=== PATIENT | female | born 1970 | race Hispanic/Latino ===

== ENCOUNTER 2023-01-26 15:06 | Inpatient (IN) | payer BC ==
[2023-01-26] VITALS (8 sets, daily range): BP systolic 131; BP diastolic 74; PULSE 80–105; RESP 18–26; O2SAT 95–99
[~2023-01-26] VITALS: Ht 180.3 cm; Wt 115.2 kg
[~2023-01-26 15:06] MED LIST: AMOX-426 PO; BENZ-226 PO; PANT40TA PO; PRED20TA3 PO; ROPI3TAB21 PO; SEMA0.258 SQ; TIZA4CAP8 PO
[2023-01-26 15:51] LABS: BASOPHILS % (AUTO) 0.2 % (0.0-5.0); EOSINOPHILS % (AUTO) 0.7 % (0.0-8.0); HEMATOCRIT 38.9 % (36-48); LYMPHOCYTES % (AUTO) 2.5 % (21.0-51.0); MEAN CORPUSCULAR HEMOGLOBIN 19.8 pg (27.0-33.0); MEAN CORPUSCULAR VOLUME 70.7 fL (79-99); PLATELET COUNT (AUTO) 105 K/uL (130-400); RED CELL DISTRIBUTION WIDTH 21.7 % (11.0-15.5); WHITE BLOOD COUNT (AUTO) 11.8 K/uL (4.8-10.8)
[2023-01-26] MEDS ORDERED: FAMOTIDINE 20MG VIAL IV ONE (16:00)
[2023-01-26] MEDS ORDERED: METOCLOPRAMIDE 10 MG/2 ML VIAL IVP ONE (16:00)
[2023-01-26] MEDS ORDERED: KETOROLAC 30MG VIAL (30MG/ML) IVP ONE (16:00)
[2023-01-26] MEDS ORDERED: ALBUTEROL 0.083% 2.5 MG/3 ML INH IH ONE ×2 (16:00→18:00)
[2023-01-26 16:43] LABS: CREATININE 0.8 mg/dL (0.5-1.5); POTASSIUM 4.4 mmol/L (3.5-5.1)
[2023-01-26 16:50] LABS: ALBUMIN 2.8 g/dL (3.5-5.0); TOTAL PROTEIN, SERUM 5.8 g/dL (6.0-8.3)
[2023-01-26] MEDS ORDERED: CEFTRIAXONE 2GM VIAL IVPB ONE (17:30)
[2023-01-26] MEDS ORDERED: ONDANSETRON 4MG INJ IV PRN (18:30)
[2023-01-26] MEDS ORDERED: ZOLPIDEM TARTRATE 5 MG TAB PO PRN (18:30)
[2023-01-26] MEDS ORDERED: DiphenhydrAMINE HCL 50 MG/ML VIAL IV PRN (18:30)
[2023-01-26] MEDS ORDERED: CEFTRIAXONE 1G VIAL IV SCH (18:30)
[2023-01-26] MEDS ORDERED: ACETAMINOPHEN 325 MG TAB PO PRN ×2 (18:30)
[2023-01-26] MEDS ORDERED: HYDROCODONE/ACETAMINOPHEN 5/325 MG TAB PO PRN (18:30)
[2023-01-26] MEDS ORDERED: KETOROLAC 10 MG TABLET PO PRN (18:30)
[2023-01-26] MEDS ORDERED: MAG/ALUM/SIMETH 30 ML UDCUP PO PRN (18:30)
[2023-01-26] MEDS ORDERED: MORPHINE 2 MG SYG IVP PRN (18:30)
[2023-01-26] MEDS ORDERED: NITROGLYCERIN 0.4 MG SL TAB SL PRN (18:30)
[2023-01-26] MEDS: SOLU-MEDROL 125MG VIAL IV SCH (19:12)
[2023-01-26] MEDS: NITROGLYCERIN 1GM OINT 1 INCH/1GM TD SCH (19:13)
[2023-01-26] MEDS ORDERED: SODIUM BICARB 8.4% 50ML SYRINGE IVP ONE (20:09)
[2023-01-26] MEDS ORDERED: EPINEPHRINE 1MG/10ML(1:10,000) 0.1 MG/ML SYG IVP ONE (20:09)
[2023-01-26] MEDS: FAMOTIDINE 20MG VIAL IV SCH ×2 (21:00→23:37)
[2023-01-26] MEDS: IPRATROPIUM 0.5 MG/2.5 ML INH IH SCH (23:16)
[2023-01-26] MEDS: ALBUTEROL 0.083% 2.5 MG/3 ML INH IH SCH (23:16)
[2023-01-26] MEDS: HEPARIN 5,000 UNIT VIAL SQ SCH (23:38)
[2023-01-26] MEDS: GUAIFENESIN-DM 200/20 MG 10 ML PO PRN (23:40)
[2023-01-27] VITALS (17 sets, daily range): BP systolic 138–166; BP diastolic 67–96; PULSE 61–107; RESP 18–26; O2SAT 95–97
[2023-01-27] MEDS: SOLU-MEDROL 125MG VIAL IV SCH ×3 (03:01→18:14)
[2023-01-27] MEDS: NITROGLYCERIN 1GM OINT 1 INCH/1GM TD SCH ×3 (03:02→18:14)
[2023-01-27] MEDS: IPRATROPIUM 0.5 MG/2.5 ML INH IH SCH ×6 (03:25→23:13)
[2023-01-27] MEDS: ALBUTEROL 0.083% 2.5 MG/3 ML INH IH SCH ×6 (03:25→23:13)
[2023-01-27 04:34] LABS: HEMATOCRIT 35.2 % (36-48); LYMPHOCYTES % (AUTO) 3.5 % (21.0-51.0); MEAN CORPUSCULAR HEMOGLOBIN 20.1 pg (27.0-33.0); MEAN CORPUSCULAR HGB CONC 27.8 g/dL (32.0-36.0); MEAN CORPUSCULAR VOLUME 72.1 fL (79-99); MONOCYTES % (AUTO) 3.5 % (3.0-13.0); NEUTROPHILS % (AUTO) 92.2 % (40.0-77.0); PLATELET COUNT (AUTO) 91 K/uL (130-400); RED BLOOD CELL COUNT(AUTO) 4.88 MIL/uL (4.00-5.50); RED CELL DISTRIBUTION WIDTH 21.2 % (11.0-15.5); WHITE BLOOD COUNT (AUTO) 6.3 K/uL (4.8-10.8)
[2023-01-27 04:44] LABS: INR 1.01 (0.85-1.15); PROTHROMBIN TIME 11.7 SEC (9.6-11.6)
[2023-01-27] MEDS: GUAIFENESIN-DM 200/20 MG 10 ML PO PRN ×2 (04:50→09:51)
[2023-01-27 04:59] LABS: HEMOGLOBIN A1C 5.9 % (4.0-6.0)
[2023-01-27 05:01] LABS: ALBUMIN 2.7 g/dL (3.5-5.0); CREATININE 0.8 mg/dL (0.5-1.5); MAGNESIUM 2.1 mg/dL (1.80-2.40); POTASSIUM 4.3 mmol/L (3.5-5.1); THYROID STIMULATING HORMONE 1.41 uIU/mL (0.36-3.74)
[2023-01-27] MEDS: FAMOTIDINE 20MG VIAL IV SCH ×4 (09:00→21:18)
[2023-01-27] MEDS: TIZANIDINE HCL 2 MG TABLET PO SCH ×5 (09:00→21:17)
[2023-01-27] MEDS: HEPARIN 5,000 UNIT VIAL SQ SCH (09:26)
[2023-01-27] MEDS ORDERED: VANCOMYCIN PROTOCOL PER PHARMACY IV SCH (11:00)
[2023-01-27] MEDS ORDERED: VANCOMYCIN 2GM/500 ML BAG 500 ML IV SCH (11:30)
[2023-01-27] MEDS: LEVOFLOXACIN 500 MG/D5W 100 ML 100 ML IV SCH (11:47)
[2023-01-27] MEDS: CEFEPIME HCL 2 GM VIAL IVPB SCH ×2 (11:47→18:15)
[2023-01-27] MEDS ORDERED: VANCOMYCIN 2GM/500 ML BAG 500 ML IV ONE (12:00)
[2023-01-27] MEDS: BENZONATATE 100 MG CAPSULE PO PRN ×2 (13:56→22:28)
[2023-01-27] MEDS: INSULIN HUMULIN R 100 UNIT/ML 3ML SQ SCH ×2 (16:30→21:25)
[2023-01-27 17:28] LABS: ABG HCO3 28.1 mmol/L (21.0-28.0); ABG OXYGEN SATURATION 94.5 % (95.0-99.0); ABG PCO2 40 mmHg (32-45)
[2023-01-27] MEDS: GUAIFENESIN-CODEINE 5 ML SYRUP PO PRN (18:07)
[2023-01-27] MEDS: ROPINIROLE HCL 1 MG TABLET PO SCH (21:17)
[2023-01-28] VITALS (25 sets, daily range): BP systolic 100–182; BP diastolic 57–95; PULSE 59–110; RESP 20–32; O2SAT 92–97
[2023-01-28] MEDS: VANCOMYCIN 1.5 GM/250 ML BAG 250 ML IV SCH ×2 (01:15→13:46)
[2023-01-28] MEDS: GUAIFENESIN-CODEINE 5 ML SYRUP PO PRN ×2 (02:19→09:11)
[2023-01-28] MEDS: SOLU-MEDROL 125MG VIAL IV SCH ×2 (02:20→08:47)
[2023-01-28] MEDS: NITROGLYCERIN 1GM OINT 1 INCH/1GM TD SCH ×3 (02:23→17:04)
[2023-01-28] MEDS: IPRATROPIUM 0.5 MG/2.5 ML INH IH SCH ×6 (02:54→21:10)
[2023-01-28] MEDS: ALBUTEROL 0.083% 2.5 MG/3 ML INH IH SCH ×6 (02:54→21:10)
[2023-01-28] MEDS: CEFEPIME HCL 2 GM VIAL IVPB SCH ×3 (03:54→18:42)
[2023-01-28 04:26] LABS: HEMATOCRIT 32.7 % (36-48); MEAN CORPUSCULAR HEMOGLOBIN 20.1 pg (27.0-33.0); MEAN CORPUSCULAR HGB CONC 27.5 g/dL (32.0-36.0); PLATELET COUNT (AUTO) 97 K/uL (130-400); RED BLOOD CELL COUNT(AUTO) 4.48 MIL/uL (4.00-5.50); RED CELL DISTRIBUTION WIDTH 21.1 % (11.0-15.5); WHITE BLOOD COUNT (AUTO) 7.1 K/uL (4.8-10.8)
[2023-01-28 04:56] LABS: CREATININE 0.7 mg/dL (0.5-1.5)
[2023-01-28] MEDS: INSULIN HUMULIN R 100 UNIT/ML 3ML SQ SCH ×4 (05:43→20:03)
[2023-01-28] MEDS: FAMOTIDINE 20MG VIAL IV SCH ×4 (08:46→19:59)
[2023-01-28] MEDS: TIZANIDINE HCL 2 MG TABLET PO SCH ×4 (08:48→19:58)
[2023-01-28] MEDS: BENZONATATE 100 MG CAPSULE PO PRN ×2 (09:11→16:50)
[2023-01-28] MEDS: LEVOFLOXACIN 500 MG/D5W 100 ML 100 ML IV SCH (12:13)
[2023-01-28 13:01] LABS: BODY FLUID RBC 472 /cu. mm.; BODY FLUID WBC 175 /cu. mm.
[2023-01-28] MEDS: GUAIFENESIN-CODEINE 5 ML SYRUP PO SCH ×3 (13:46→19:58)
[2023-01-28 14:24] LABS: APPEARANCE BODY FLUID SLIGHTLY CLOUDY (CLEAR); COLOR,BODY FLUID YELLOW (LT YELLOW); SPECIMENTYPE,BODY FLUID PLEURAL; TOTAL VOLUME,BODY FLUID 1500 mL
[2023-01-28 14:34] LABS: BF LYMPHOCYTE 53 %; BF MONOCYTE 3 %
[2023-01-28] MEDS: HEPARIN 5,000 UNIT VIAL SQ SCH (16:51)
[2023-01-28] MEDS: SOLU-MEDROL 40MG VIAL IVP SCH (18:43)
[2023-01-28] MEDS: ROPINIROLE HCL 1 MG TABLET PO SCH (19:58)
[2023-01-29] VITALS (13 sets, daily range): BP systolic 120–158; BP diastolic 50–75; PULSE 54–92; RESP 0–24; O2SAT 94–100
[2023-01-29] MEDS: BENZONATATE 100 MG CAPSULE PO PRN ×2 (00:28→20:51)
[2023-01-29] MEDS: VANCOMYCIN 1.5 GM/250 ML BAG 250 ML IV SCH ×2 (00:28→15:04)
[2023-01-29] MEDS: GUAIFENESIN-CODEINE 5 ML SYRUP PO SCH ×6 (00:28→20:43)
[2023-01-29] MEDS: IPRATROPIUM 0.5 MG/2.5 ML INH IH SCH ×6 (02:16→23:19)
[2023-01-29] MEDS: ALBUTEROL 0.083% 2.5 MG/3 ML INH IH SCH ×6 (02:16→23:19)
[2023-01-29] MEDS: NITROGLYCERIN 1GM OINT 1 INCH/1GM TD SCH ×3 (02:35→18:48)
[2023-01-29] MEDS: SOLU-MEDROL 40MG VIAL IVP SCH ×3 (02:35→18:48)
[2023-01-29] MEDS: CEFEPIME HCL 2 GM VIAL IVPB SCH ×3 (02:35→18:48)
[2023-01-29] MEDS: HEPARIN 5,000 UNIT VIAL SQ SCH ×2 (04:08→17:23)
[2023-01-29 05:47] LABS: HEMATOCRIT 33.3 % (36-48); MEAN CORPUSCULAR HEMOGLOBIN 20.4 pg (27.0-33.0); MEAN CORPUSCULAR HGB CONC 27.3 g/dL (32.0-36.0); MEAN CORPUSCULAR VOLUME 74.5 fL (79-99); PLATELET COUNT (AUTO) 106 K/uL (130-400); RED BLOOD CELL COUNT(AUTO) 4.47 MIL/uL (4.00-5.50); RED CELL DISTRIBUTION WIDTH 21.6 % (11.0-15.5); WHITE BLOOD COUNT (AUTO) 9.2 K/uL (4.8-10.8)
[2023-01-29 05:57] LABS: CREATININE 0.7 mg/dL (0.5-1.5); POTASSIUM 4.1 mmol/L (3.5-5.1)
[2023-01-29] MEDS: INSULIN HUMULIN R 100 UNIT/ML 3ML SQ SCH ×4 (05:57→20:17)
[2023-01-29] MEDS: FAMOTIDINE 20MG VIAL IV SCH ×4 (09:00→20:43)
[2023-01-29] MEDS: TIZANIDINE HCL 2 MG TABLET PO SCH ×4 (09:00→20:43)
[2023-01-29] MEDS: LEVOFLOXACIN 500 MG/D5W 100 ML 100 ML IV SCH (10:58)
[2023-01-29] MEDS: ROPINIROLE HCL 1 MG TABLET PO SCH (20:43)
[2023-01-30] VITALS (18 sets, daily range): BP systolic 125–165; BP diastolic 65–103; PULSE 68–102; RESP 18–22; O2SAT 95–99
[2023-01-30] MEDS: VANCOMYCIN 1.5 GM/250 ML BAG 250 ML IV SCH (02:11)
[2023-01-30] MEDS: SOLU-MEDROL 40MG VIAL IVP SCH ×3 (02:11→18:43)
[2023-01-30] MEDS: GUAIFENESIN-CODEINE 5 ML SYRUP PO SCH ×6 (02:11→20:34)
[2023-01-30] MEDS: NITROGLYCERIN 1GM OINT 1 INCH/1GM TD SCH ×3 (02:12→18:44)
[2023-01-30] MEDS: ALBUTEROL 0.083% 2.5 MG/3 ML INH IH SCH ×6 (02:46→22:50)
[2023-01-30] MEDS: IPRATROPIUM 0.5 MG/2.5 ML INH IH SCH ×6 (02:46→22:50)
[2023-01-30] MEDS: CEFEPIME HCL 2 GM VIAL IVPB SCH ×3 (04:22→18:44)
[2023-01-30] MEDS: HEPARIN 5,000 UNIT VIAL SQ SCH ×2 (05:38→17:22)
[2023-01-30 06:45] LABS: BASOPHILS % (AUTO) 0.2 % (0.0-5.0); HEMATOCRIT 36.3 % (36-48); LYMPHOCYTES % (AUTO) 1.8 % (21.0-51.0); MEAN CORPUSCULAR HEMOGLOBIN 20.1 pg (27.0-33.0); MEAN CORPUSCULAR HGB CONC 27.5 g/dL (32.0-36.0); MEAN CORPUSCULAR VOLUME 72.9 fL (79-99); NEUTROPHILS % (AUTO) 92.9 % (40.0-77.0); PLATELET COUNT (AUTO) 128 K/uL (130-400); RED BLOOD CELL COUNT(AUTO) 4.98 MIL/uL (4.00-5.50); RED CELL DISTRIBUTION WIDTH 21.6 % (11.0-15.5); WHITE BLOOD COUNT (AUTO) 11.4 K/uL (4.8-10.8)
[2023-01-30] MEDS: INSULIN HUMULIN R 100 UNIT/ML 3ML SQ SCH ×4 (06:49→20:32)
[2023-01-30 07:06] LABS: ALBUMIN 2.6 g/dL (3.5-5.0); CREATININE 0.7 mg/dL (0.5-1.5); POTASSIUM 4.1 mmol/L (3.5-5.1); TOTAL PROTEIN, SERUM 5.8 g/dL (6.0-8.3)
[2023-01-30 07:12] LABS: B-TYPE NATRIURETIC PEPTIDE 95 pg/mL (0-100)
[2023-01-30] MEDS: FAMOTIDINE 20MG VIAL IV SCH ×3 (09:00→20:34)
[2023-01-30] MEDS: TIZANIDINE HCL 2 MG TABLET PO SCH ×4 (09:00→20:34)
[2023-01-30] MEDS: LEVOFLOXACIN 500 MG/D5W 100 ML 100 ML IV SCH (11:02)
[2023-01-30] MEDS ORDERED: HYDRALAZINE 20MG/ML VIAL IM PRN (12:00)
[2023-01-30] MEDS: LISINOPRIL 20 MG TABLET PO SCH (12:57)
[2023-01-30] MEDS: VANCOMYCIN 1.75 GM/250 ML BAG 250 ML IV SCH (15:49)
[2023-01-30] MEDS: ROPINIROLE HCL 1 MG TABLET PO SCH (20:34)
[2023-01-30] MEDS: BENZONATATE 100 MG CAPSULE PO PRN (20:40)
[2023-01-31] VITALS (14 sets, daily range): BP systolic 147–177; BP diastolic 54–97; PULSE 72–113; RESP 18–28; O2SAT 92–99
[2023-01-31] MEDS: ALBUTEROL 0.083% 2.5 MG/3 ML INH IH SCH ×6 (01:50→22:17)
[2023-01-31] MEDS: IPRATROPIUM 0.5 MG/2.5 ML INH IH SCH ×6 (01:50→22:17)
[2023-01-31] MEDS: GUAIFENESIN-CODEINE 5 ML SYRUP PO SCH ×6 (02:09→20:25)
[2023-01-31] MEDS: NITROGLYCERIN 1GM OINT 1 INCH/1GM TD SCH ×3 (02:10→18:27)
[2023-01-31] MEDS: SOLU-MEDROL 40MG VIAL IVP SCH ×3 (02:10→18:28)
[2023-01-31] MEDS: VANCOMYCIN 1.75 GM/250 ML BAG 250 ML IV SCH ×2 (02:11→13:29)
[2023-01-31] MEDS: CEFEPIME HCL 2 GM VIAL IVPB SCH ×3 (04:05→18:27)
[2023-01-31 05:09] LABS: BASOPHILS % (AUTO) 0.1 % (0.0-5.0); HEMATOCRIT 34.3 % (36-48); LYMPHOCYTES % (AUTO) 1.8 % (21.0-51.0); MEAN CORPUSCULAR HEMOGLOBIN 20.6 pg (27.0-33.0); MEAN CORPUSCULAR HGB CONC 28.3 g/dL (32.0-36.0); MEAN CORPUSCULAR VOLUME 72.7 fL (79-99); MONOCYTES % (AUTO) 4.8 % (3.0-13.0); NEUTROPHILS % (AUTO) 92.1 % (40.0-77.0); PLATELET COUNT (AUTO) 115 K/uL (130-400); RED BLOOD CELL COUNT(AUTO) 4.72 MIL/uL (4.00-5.50); RED CELL DISTRIBUTION WIDTH 21.4 % (11.0-15.5); WHITE BLOOD COUNT (AUTO) 11.2 K/uL (4.8-10.8)
[2023-01-31 05:22] LABS: B-TYPE NATRIURETIC PEPTIDE 41 pg/mL (0-100)
[2023-01-31 05:27] LABS: CREATININE 0.6 mg/dL (0.5-1.5); POTASSIUM 3.9 mmol/L (3.5-5.1)
[2023-01-31] MEDS: HEPARIN 5,000 UNIT VIAL SQ SCH ×2 (05:39→17:30)
[2023-01-31] MEDS: BENZONATATE 100 MG CAPSULE PO PRN ×2 (05:40→20:25)
[2023-01-31] MEDS: INSULIN HUMULIN R 100 UNIT/ML 3ML SQ SCH ×4 (05:44→20:26)
[2023-01-31] MEDS: FAMOTIDINE 20MG VIAL IV SCH ×2 (08:58→20:25)
[2023-01-31] MEDS: TIZANIDINE HCL 2 MG TABLET PO SCH ×4 (08:58→20:25)
[2023-01-31] MEDS: LISINOPRIL 20 MG TABLET PO SCH (08:58)
[2023-01-31] MEDS: LEVOFLOXACIN 500 MG/D5W 100 ML 100 ML IV SCH (12:11)
[2023-01-31] MEDS: LACTULOSE 20 GM/30 ML UDCUP PO PRN ×2 (13:29→20:25)
[2023-01-31] MEDS ORDERED: POTASSIUM CHLORIDE 10MEQ/100ML 100 ML IV PRN (16:30)
[2023-01-31] MEDS ORDERED: MAGNESIUM 2GM PREMIX 50ML 50 ML IV PRN (16:30)
[2023-01-31] MEDS ORDERED: DEXTROSE 50%-WATER 50 ML DISP.SYRIN IV PRN (16:30)
[2023-01-31] MEDS ORDERED: GLUCAGON 1MG KIT 1 MG ML IM PRN (16:30)
[2023-01-31] MEDS: ROPINIROLE HCL 1 MG TABLET PO SCH (20:25)
[2023-02-01] VITALS (17 sets, daily range): BP systolic 99–158; BP diastolic 41–91; PULSE 68–109; RESP 18–22; O2SAT 95–99
[2023-02-01] MEDS: VANCOMYCIN 1.75 GM/250 ML BAG 250 ML IV SCH (00:31)
[2023-02-01] MEDS: GUAIFENESIN-CODEINE 5 ML SYRUP PO SCH ×6 (00:31→20:46)
[2023-02-01] MEDS: SOLU-MEDROL 40MG VIAL IVP SCH ×3 (00:32→18:27)
[2023-02-01] MEDS: IPRATROPIUM 0.5 MG/2.5 ML INH IH SCH ×6 (03:19→21:25)
[2023-02-01] MEDS: ALBUTEROL 0.083% 2.5 MG/3 ML INH IH SCH ×6 (03:19→21:25)
[2023-02-01] MEDS: NITROGLYCERIN 1GM OINT 1 INCH/1GM TD SCH ×3 (04:56→18:28)
[2023-02-01] MEDS: CEFEPIME HCL 2 GM VIAL IVPB SCH ×3 (04:56→18:28)
[2023-02-01] MEDS: HEPARIN 5,000 UNIT VIAL SQ SCH ×2 (04:57→16:45)
[2023-02-01] MEDS: INSULIN HUMULIN R 100 UNIT/ML 3ML SQ SCH ×4 (05:53→20:48)
[2023-02-01 06:45] LABS: CREATININE 0.7 mg/dL (0.5-1.5); MAGNESIUM 2.1 mg/dL (1.80-2.40); PHOSPHORUS 3.4 mg/dL (2.5-4.9); POTASSIUM 4.1 mmol/L (3.5-5.1)
[2023-02-01 08:24] LABS: HEMATOCRIT 35.3 % (36-48); MEAN CORPUSCULAR HEMOGLOBIN 20.5 pg (27.0-33.0); MEAN CORPUSCULAR VOLUME 73.2 fL (79-99); PLATELET COUNT (AUTO) 102 K/uL (130-400); RED BLOOD CELL COUNT(AUTO) 4.82 MIL/uL (4.00-5.50); WHITE BLOOD COUNT (AUTO) 9.3 K/uL (4.8-10.8)
[2023-02-01] MEDS: FAMOTIDINE 20MG VIAL IV SCH ×2 (08:40→20:46)
[2023-02-01] MEDS: LISINOPRIL 20 MG TABLET PO SCH (08:45)
[2023-02-01] MEDS: TIZANIDINE HCL 2 MG TABLET PO SCH ×4 (08:46→20:47)
[2023-02-01] MEDS: LEVOFLOXACIN 500 MG/D5W 100 ML 100 ML IV SCH (10:57)
[2023-02-01] MEDS: LOSARTAN 50 MG TABLET PO SCH (10:59)
[2023-02-01] MEDS: BENZONATATE 100 MG CAPSULE PO PRN ×2 (11:10→20:47)
[2023-02-01] MEDS: VANCOMYCIN 1.5 GM/250 ML BAG 250 ML IV SCH (14:21)
[2023-02-01] MEDS: ROPINIROLE HCL 1 MG TABLET PO SCH (20:47)
[2023-02-02] VITALS (18 sets, daily range): BP systolic 121–163; BP diastolic 61–86; PULSE 64–107; RESP 18–24; O2SAT 88–98
[2023-02-02] MEDS: GUAIFENESIN-CODEINE 5 ML SYRUP PO SCH ×6 (00:07→20:25)
[2023-02-02] MEDS: ALBUTEROL 0.083% 2.5 MG/3 ML INH IH SCH ×6 (02:20→22:43)
[2023-02-02] MEDS: IPRATROPIUM 0.5 MG/2.5 ML INH IH SCH ×6 (02:20→22:43)
[2023-02-02] MEDS: VANCOMYCIN 1.5 GM/250 ML BAG 250 ML IV SCH ×2 (02:29→14:40)
[2023-02-02] MEDS: SOLU-MEDROL 40MG VIAL IVP SCH ×3 (02:30→18:41)
[2023-02-02] MEDS: NITROGLYCERIN 1GM OINT 1 INCH/1GM TD SCH ×3 (03:48→18:41)
[2023-02-02] MEDS: CEFEPIME HCL 2 GM VIAL IVPB SCH ×3 (03:49→18:41)
[2023-02-02] MEDS: HEPARIN 5,000 UNIT VIAL SQ SCH ×2 (05:29→17:19)
[2023-02-02] MEDS: INSULIN HUMULIN R 100 UNIT/ML 3ML SQ SCH (05:30)
[2023-02-02] MEDS: FAMOTIDINE 20MG VIAL IV SCH ×2 (08:35→20:26)
[2023-02-02] MEDS: LOSARTAN 50 MG TABLET PO SCH (08:35)
[2023-02-02] MEDS: TIZANIDINE HCL 2 MG TABLET PO SCH ×4 (08:38→20:26)
[2023-02-02] MEDS: BENZONATATE 100 MG CAPSULE PO PRN ×2 (10:39→20:26)
[2023-02-02] MEDS: LEVOFLOXACIN 500 MG/D5W 100 ML 100 ML IV SCH (10:39)
[2023-02-02] MEDS: ROPINIROLE HCL 1 MG TABLET PO SCH (20:26)
[2023-02-03] VITALS (15 sets, daily range): BP systolic 141–167; BP diastolic 51–81; PULSE 71–106; RESP 20–26; O2SAT 90–100
[2023-02-03] MEDS: GUAIFENESIN-CODEINE 5 ML SYRUP PO SCH ×6 (00:58→20:23)
[2023-02-03] MEDS: ALBUTEROL 0.083% 2.5 MG/3 ML INH IH SCH ×6 (01:59→22:00)
[2023-02-03] MEDS: IPRATROPIUM 0.5 MG/2.5 ML INH IH SCH ×6 (01:59→22:00)
[2023-02-03] MEDS: VANCOMYCIN 1.5 GM/250 ML BAG 250 ML IV SCH (02:40)
[2023-02-03] MEDS: SOLU-MEDROL 40MG VIAL IVP SCH ×3 (02:47→19:15)
[2023-02-03] MEDS: NITROGLYCERIN 1GM OINT 1 INCH/1GM TD SCH ×3 (02:48→19:15)
[2023-02-03] MEDS: CEFEPIME HCL 2 GM VIAL IVPB SCH ×3 (02:48→19:14)
[2023-02-03] MEDS: HEPARIN 5,000 UNIT VIAL SQ SCH ×2 (05:17→17:33)
[2023-02-03 05:18] LABS: HEMATOCRIT 34.5 % (36-48); MEAN CORPUSCULAR HEMOGLOBIN 20.8 pg (27.0-33.0); MEAN CORPUSCULAR HGB CONC 28.4 g/dL (32.0-36.0); MEAN CORPUSCULAR VOLUME 73.2 fL (79-99); PLATELET COUNT (AUTO) 78 K/uL (130-400); RED BLOOD CELL COUNT(AUTO) 4.71 MIL/uL (4.00-5.50); RED CELL DISTRIBUTION WIDTH 22.4 % (11.0-15.5)
[2023-02-03 05:43] LABS: CREATININE 0.7 mg/dL (0.5-1.5); MAGNESIUM 2.2 mg/dL (1.80-2.40); PHOSPHORUS 3.7 mg/dL (2.5-4.9); POTASSIUM 4.1 mmol/L (3.5-5.1)
[2023-02-03] MEDS: BENZONATATE 100 MG CAPSULE PO PRN (06:13)
[2023-02-03] MEDS: LOSARTAN 50 MG TABLET PO SCH (09:09)
[2023-02-03] MEDS: TIZANIDINE HCL 2 MG TABLET PO SCH ×4 (09:09→20:22)
[2023-02-03] MEDS: FAMOTIDINE 20MG VIAL IV SCH ×2 (09:09→20:22)
[2023-02-03] MEDS: LEVOFLOXACIN 500 MG/D5W 100 ML 100 ML IV SCH (10:55)
[2023-02-03] MEDS: ALPRAZOLAM 0.25 MG TABLET PO PRN ×2 (13:21→19:22)
[2023-02-03] MEDS ORDERED: LABETALOL 20MG VIAL IV PRN (17:00)
[2023-02-03] MEDS ORDERED: IOHEXOL-350 75 ML VIAL IV ONE (17:10)
[2023-02-03] MEDS ORDERED: HYDRALAZINE 20MG/ML VIAL IV PRN (18:00)
[2023-02-03] MEDS: ROPINIROLE HCL 1 MG TABLET PO SCH (20:23)
[2023-02-04] VITALS (8 sets, daily range): BP systolic 134–156; BP diastolic 68–104; PULSE 55–110; RESP 18–32; O2SAT 93–100
[2023-02-04] MEDS: ALBUTEROL 0.083% 2.5 MG/3 ML INH IH SCH ×2 (02:00→06:00)
[2023-02-04] MEDS: SOLU-MEDROL 40MG VIAL IVP SCH ×3 (02:00→18:59)
[2023-02-04] MEDS: GUAIFENESIN-CODEINE 5 ML SYRUP PO SCH ×6 (02:00→20:55)
[2023-02-04] MEDS: IPRATROPIUM 0.5 MG/2.5 ML INH IH SCH ×2 (02:00→06:00)
[2023-02-04] MEDS: CEFEPIME HCL 2 GM VIAL IVPB SCH ×3 (03:46→18:28)
[2023-02-04] MEDS: NITROGLYCERIN 1GM OINT 1 INCH/1GM TD SCH ×3 (03:46→18:27)
[2023-02-04 05:19] LABS: BASOPHILS % (AUTO) 0.1 % (0.0-5.0); HEMATOCRIT 36.8 % (36-48); LYMPHOCYTES % (AUTO) 1.2 % (21.0-51.0); MEAN CORPUSCULAR HEMOGLOBIN 20.8 pg (27.0-33.0); MEAN CORPUSCULAR HGB CONC 28.3 g/dL (32.0-36.0); MEAN CORPUSCULAR VOLUME 73.7 fL (79-99); MONOCYTES % (AUTO) 4.1 % (3.0-13.0); NEUTROPHILS % (AUTO) 93.5 % (40.0-77.0); PLATELET COUNT (AUTO) 80 K/uL (130-400); RED BLOOD CELL COUNT(AUTO) 4.99 MIL/uL (4.00-5.50); RED CELL DISTRIBUTION WIDTH 22.8 % (11.0-15.5); WHITE BLOOD COUNT (AUTO) 15.7 K/uL (4.8-10.8)
[2023-02-04] MEDS: HEPARIN 5,000 UNIT VIAL SQ SCH ×2 (05:23→17:00)
[2023-02-04 05:34] LABS: ALBUMIN 2.5 g/dL (3.5-5.0); CREATININE 0.6 mg/dL (0.5-1.5); MAGNESIUM 2.2 mg/dL (1.80-2.40); POTASSIUM 3.9 mmol/L (3.5-5.1); TOTAL PROTEIN, SERUM 5.5 g/dL (6.0-8.3)
[2023-02-04] MEDS: TIZANIDINE HCL 2 MG TABLET PO SCH ×5 (09:00→20:56)
[2023-02-04] MEDS: LOSARTAN 50 MG TABLET PO SCH (09:05)
[2023-02-04] MEDS: FAMOTIDINE 20MG VIAL IV SCH ×2 (09:05→20:56)
[2023-02-04] MEDS: LEVOFLOXACIN 500 MG/D5W 100 ML 100 ML IV SCH (11:12)
[2023-02-04] MEDS ORDERED: ALBUTEROL 0.083% 2.5 MG/3 ML INH IH PRN (11:30)
[2023-02-04] MEDS: ALPRAZOLAM 0.25 MG TABLET PO PRN (14:45)
[2023-02-04] MEDS ORDERED: IOHEXOL-350 75 ML VIAL IV ONE (14:55)
[2023-02-04 16:03] LABS: ABG BASE EXCESS 2.5 mmol/L (-2.0-3.0); ABG HCO3 27.6 mmol/L (21.0-28.0); ABG OXYGEN SATURATION 94.1 % (95.0-99.0); ABG PCO2 44 mmHg (32-45)
[2023-02-04] MEDS: ROPINIROLE HCL 1 MG TABLET PO SCH (20:56)
[2023-02-05] VITALS (18 sets, daily range): BP systolic 96–159; BP diastolic 65–85; PULSE 65–96; RESP 18–28; O2SAT 95–99
[2023-02-05] MEDS: GUAIFENESIN-CODEINE 5 ML SYRUP PO SCH ×6 (02:14→20:57)
[2023-02-05] MEDS: NITROGLYCERIN 1GM OINT 1 INCH/1GM TD SCH ×3 (02:15→17:47)
[2023-02-05] MEDS: CEFEPIME HCL 2 GM VIAL IVPB SCH ×2 (02:15→10:59)
[2023-02-05] MEDS: SOLU-MEDROL 40MG VIAL IVP SCH ×3 (02:15→17:47)
[2023-02-05] MEDS: IPRATROPIUM 0.5 MG/2.5 ML INH IH PRN ×3 (02:19→11:42)
[2023-02-05 03:40] LABS: BASOPHILS % (AUTO) 0.1 % (0.0-5.0); HEMATOCRIT 35.3 % (36-48); LYMPHOCYTES % (AUTO) 1.4 % (21.0-51.0); MEAN CORPUSCULAR HEMOGLOBIN 20.9 pg (27.0-33.0); MEAN CORPUSCULAR HGB CONC 28.3 g/dL (32.0-36.0); MEAN CORPUSCULAR VOLUME 73.7 fL (79-99); NEUTROPHILS % (AUTO) 94.7 % (40.0-77.0); PLATELET COUNT (AUTO) 78 K/uL (130-400); RED BLOOD CELL COUNT(AUTO) 4.79 MIL/uL (4.00-5.50); RED CELL DISTRIBUTION WIDTH 22.9 % (11.0-15.5)
[2023-02-05 03:45] LABS: ABG BASE EXCESS 1.4 mmol/L (-2.0-3.0); ABG HCO3 26.6 mmol/L (21.0-28.0); ABG OXYGEN SATURATION 96.7 % (95.0-99.0); ABG PCO2 44 mmHg (32-45)
[2023-02-05 04:45] LABS: ALBUMIN 2.4 g/dL (3.5-5.0); CREATININE 0.9 mg/dL (0.5-1.5); MAGNESIUM 2.3 mg/dL (1.80-2.40); POTASSIUM 4.3 mmol/L (3.5-5.1); TOTAL PROTEIN, SERUM 5.5 g/dL (6.0-8.3)
[2023-02-05] MEDS: HEPARIN 5,000 UNIT VIAL SQ SCH ×2 (05:00→16:47)
[2023-02-05] MEDS: LACTULOSE 20 GM/30 ML UDCUP PO PRN (06:10)
[2023-02-05] MEDS: FAMOTIDINE 20MG VIAL IV SCH ×2 (09:32→20:46)
[2023-02-05] MEDS: TIZANIDINE HCL 2 MG TABLET PO SCH ×4 (09:32→20:47)
[2023-02-05] MEDS: LOSARTAN 50 MG TABLET PO SCH (09:41)
[2023-02-05] MEDS: LEVOFLOXACIN 500 MG/D5W 100 ML 100 ML IV SCH (10:59)
[2023-02-05] MEDS: MEROPENEM 1 GM in 0.9%NACL 100ML 100 ML IVPB SCH (18:04)
[2023-02-05] MEDS: IPRATROPIUM/ALBUTEROL SULFATE 3 ML SOLUTION IH SCH ×2 (18:50→23:56)
[2023-02-05] MEDS: ROPINIROLE HCL 1 MG TABLET PO SCH (20:46)
[2023-02-05] MEDS: VANCOMYCIN 1.5 GM/250 ML BAG 250 ML IV SCH (20:47)
[2023-02-05] MEDS: BENZONATATE 100 MG CAPSULE PO PRN (20:57)
[2023-02-06] VITALS (17 sets, daily range): BP systolic 146–161; BP diastolic 69–91; PULSE 53–106; RESP 18–32; O2SAT 96–100
[2023-02-06] MEDS: MEROPENEM 1 GM in 0.9%NACL 100ML 100 ML IVPB SCH ×3 (01:00→18:06)
[2023-02-06] MEDS: GUAIFENESIN-CODEINE 5 ML SYRUP PO SCH ×6 (01:07→21:11)
[2023-02-06] MEDS: NITROGLYCERIN 1GM OINT 1 INCH/1GM TD SCH ×3 (01:57→18:00)
[2023-02-06] MEDS: SOLU-MEDROL 40MG VIAL IVP SCH ×3 (01:57→17:59)
[2023-02-06 03:48] LABS: HEMATOCRIT 35.2 % (36-48); MEAN CORPUSCULAR HEMOGLOBIN 20.7 pg (27.0-33.0); MEAN CORPUSCULAR HGB CONC 28.4 g/dL (32.0-36.0); PLATELET COUNT (AUTO) 72 K/uL (130-400); RED BLOOD CELL COUNT(AUTO) 4.82 MIL/uL (4.00-5.50); RED CELL DISTRIBUTION WIDTH 23.3 % (11.0-15.5); WHITE BLOOD COUNT (AUTO) 13.9 K/uL (4.8-10.8)
[2023-02-06 04:05] LABS: CREATININE 0.9 mg/dL (0.5-1.5); MAGNESIUM 2.3 mg/dL (1.80-2.40); PHOSPHORUS 4.3 mg/dL (2.5-4.9); POTASSIUM 4.5 mmol/L (3.5-5.1)
[2023-02-06] MEDS: HEPARIN 5,000 UNIT VIAL SQ SCH ×2 (04:15→18:04)
[2023-02-06 04:30] LABS: ABG BASE EXCESS 0.3 mmol/L (-2.0-3.0); ABG HCO3 25.2 mmol/L (21.0-28.0); ABG OXYGEN SATURATION 94.3 % (95.0-99.0); ABG PCO2 42 mmHg (32-45)
[2023-02-06 04:43] LABS: B-TYPE NATRIURETIC PEPTIDE 37 pg/mL (0-100)
[2023-02-06] MEDS: IPRATROPIUM/ALBUTEROL SULFATE 3 ML SOLUTION IH SCH ×2 (07:18→11:52)
[2023-02-06] MEDS: VANCOMYCIN 1.5 GM/250 ML BAG 250 ML IV SCH ×2 (08:53→21:11)
[2023-02-06] MEDS: LOSARTAN 50 MG TABLET PO SCH (08:54)
[2023-02-06] MEDS: TIZANIDINE HCL 2 MG TABLET PO SCH ×4 (08:54→20:52)
[2023-02-06] MEDS: FAMOTIDINE 20MG VIAL IV SCH ×2 (08:54→20:50)
[2023-02-06] MEDS: IPRATROPIUM 0.5 MG/2.5 ML INH IH PRN (09:20)
[2023-02-06] MEDS ORDERED: IPRATROPIUM 0.5 MG/2.5 ML INH IH PRN (09:30)
[2023-02-06] MEDS: LEVOFLOXACIN 500 MG/D5W 100 ML 100 ML IV SCH (10:14)
[2023-02-06] MEDS ORDERED: COMPOUND IV MISC 1 EACH IVSOLN MISC PRN (12:00)
[2023-02-06] MEDS: ALPRAZOLAM 0.25 MG TABLET PO PRN ×2 (13:15→17:58)
[2023-02-06] MEDS: FUROSEMIDE 40MG VIAL IV SCH ×2 (13:37→20:50)
[2023-02-06] MEDS: IPRATROPIUM 0.5 MG/2.5 ML INH IH SCH ×3 (14:17→22:48)
[2023-02-06] MEDS: ACETYLCYSTEINE 10% 100MG/ML 4ML VIAL IH SCH ×3 (14:17→22:48)
[2023-02-06] MEDS: BUDESONIDE 0.5 MG/2 ML INH IH SCH (19:24)
[2023-02-06] MEDS: ROPINIROLE HCL 1 MG TABLET PO SCH (20:52)
[2023-02-07] VITALS (35 sets, daily range): BP systolic 84–163; BP diastolic 36–87; PULSE 47–111; RESP 16–38; O2SAT 92–99
[2023-02-07] MEDS: ALPRAZOLAM 0.25 MG TABLET PO PRN ×2 (00:59→08:42)
[2023-02-07] MEDS: GUAIFENESIN-CODEINE 5 ML SYRUP PO SCH ×6 (01:06→20:42)
[2023-02-07] MEDS: MEROPENEM 1 GM in 0.9%NACL 100ML 100 ML IVPB SCH ×3 (01:06→18:06)
[2023-02-07] MEDS: IPRATROPIUM 0.5 MG/2.5 ML INH IH SCH ×5 (03:10→22:19)
[2023-02-07] MEDS: ACETYLCYSTEINE 10% 100MG/ML 4ML VIAL IH SCH ×5 (03:10→22:18)
[2023-02-07] MEDS: SOLU-MEDROL 40MG VIAL IVP SCH ×3 (03:45→18:06)
[2023-02-07] MEDS: NITROGLYCERIN 1GM OINT 1 INCH/1GM TD SCH ×3 (03:46→18:07)
[2023-02-07 04:36] LABS: BASOPHILS % (AUTO) 0.1 % (0.0-5.0); HEMATOCRIT 35.7 % (36-48); LYMPHOCYTES % (AUTO) 1.4 % (21.0-51.0); MEAN CORPUSCULAR HEMOGLOBIN 21.5 pg (27.0-33.0); MEAN CORPUSCULAR HGB CONC 29.1 g/dL (32.0-36.0); MEAN CORPUSCULAR VOLUME 73.8 fL (79-99); MONOCYTES % (AUTO) 3.3 % (3.0-13.0); NEUTROPHILS % (AUTO) 94.3 % (40.0-77.0); PLATELET COUNT (AUTO) 77 K/uL (130-400); RED BLOOD CELL COUNT(AUTO) 4.84 MIL/uL (4.00-5.50); RED CELL DISTRIBUTION WIDTH 23.3 % (11.0-15.5); WHITE BLOOD COUNT (AUTO) 23.3 K/uL (4.8-10.8)
[2023-02-07 04:44] LABS: POTASSIUM 4.5 mmol/L (3.5-5.1)
[2023-02-07] MEDS: FUROSEMIDE 40MG VIAL IV SCH ×3 (05:42→20:30)
[2023-02-07] MEDS: HEPARIN 5,000 UNIT VIAL SQ SCH ×2 (05:56→16:38)
[2023-02-07] MEDS: BUDESONIDE 0.5 MG/2 ML INH IH SCH ×2 (06:22→19:03)
[2023-02-07] MEDS: LACTULOSE 20 GM/30 ML UDCUP PO PRN (07:38)
[2023-02-07] MEDS ORDERED: METOPROLOL TARTRATE 1 MG/ML 5ML VIAL IV ONE ×2 (08:33→08:45)
[2023-02-07] MEDS: LOSARTAN 50 MG TABLET PO SCH (08:42)
[2023-02-07] MEDS: FAMOTIDINE 20MG VIAL IV SCH ×2 (08:42→21:25)
[2023-02-07] MEDS: TIZANIDINE HCL 2 MG TABLET PO SCH ×4 (08:42→20:42)
[2023-02-07] MEDS: VANCOMYCIN 1.5 GM/250 ML BAG 250 ML IV SCH (08:50)
[2023-02-07 09:48] LABS: MAGNESIUM 2.2 mg/dL (1.80-2.40)
[2023-02-07] MEDS: LEVOFLOXACIN 500 MG/D5W 100 ML 100 ML IV SCH (11:55)
[2023-02-07] MEDS ORDERED: CLONAZEPAM 1MG TAB PO ONE (13:45)
[2023-02-07 14:59] LABS: APPEARANCE,URINE CLOUDY (CLEAR); BILIRUBIN,URINE NEGATIVE (NEGATIVE); COLOR,URINE LIGHT-YELLOW (YELLOW); GLUCOSE, URINE (UA) NEGATIVE (NEGATIVE); KETONES,URINE NEGATIVE (NEGATIVE); LEUKOCYTE ESTERASE ,URINE 75 Leu/uL (NEGATIVE); NITRATE,URINE NEGATIVE (NEGATIVE); OCCULT BLOOD,URINE MODERATE (NEGATIVE); PROTEIN,URINE NEGATIVE (NEGATIVE); UROBILINOGEN,URINE 0.2 mg/dL (0.2-1.0)
[2023-02-07 15:04] LABS: BACTERIA,URINE RARE /HPF (None Seen); MUCUS,URINE FEW LPF (None Seen); SQUAMOUS EPITHELIAL CELL,UR FEW /HPF (0-2)
[2023-02-07] MEDS: METOCLOPRAMIDE 10 MG/2 ML VIAL IVP SCH (18:06)
[2023-02-07 18:56] LABS: ABG BASE EXCESS -1.6 mmol/L (-2.0-3.0); ABG HCO3 22.7 mmol/L (21.0-28.0); ABG OXYGEN SATURATION 94.9 % (95.0-99.0); ABG PCO2 37 mmHg (32-45)
[2023-02-07] MEDS ORDERED: NOREPINEPHRINE 16MG/NS 250ML 250 ML IV ONE (19:34)
[2023-02-07] MEDS ORDERED: DEXMEDETOMIDINE HCL 400 MCG in 0.9%NACL 100ML 96 ML IV PRN (20:00)
[2023-02-07] MEDS ORDERED: NOREPINEPHRINE BITARTRATE 16 MG in DEXTROSE 5%-WATER 250 ML IV PRN (20:00)
[2023-02-07] MEDS: METOPROLOL TARTRATE 25 MG TAB PO SCH (20:40)
[2023-02-07] MEDS: ROPINIROLE HCL 1 MG TABLET PO SCH (20:42)
[2023-02-07 20:43] LABS: CREATININE 1.4 mg/dL (0.5-1.5); POTASSIUM 4.6 mmol/L (3.5-5.1)
[2023-02-07 20:49] LABS: MAGNESIUM 2.2 mg/dL (1.80-2.40)
[2023-02-07 20:53] LABS: HEMATOCRIT 34.7 % (36-48); MEAN CORPUSCULAR HEMOGLOBIN 21.6 pg (27.0-33.0); MEAN CORPUSCULAR HGB CONC 29.1 g/dL (32.0-36.0); MEAN CORPUSCULAR VOLUME 74.1 fL (79-99); PLATELET COUNT (AUTO) 75 K/uL (130-400); RED BLOOD CELL COUNT(AUTO) 4.68 MIL/uL (4.00-5.50); RED CELL DISTRIBUTION WIDTH 23.7 % (11.0-15.5); WHITE BLOOD COUNT (AUTO) 25.8 K/uL (4.8-10.8)
[2023-02-07] MEDS ORDERED: CLONAZEPAM 1MG TAB PO PRN (21:00)
[2023-02-07] MEDS ORDERED: CLONAZEPAM 1MG TAB PO SCH (21:00)
[2023-02-07] MEDS: FUROSEMIDE 100MG VIAL 100 MG in 0.9%NACL 100ML 90 ML IV PRN (21:07)
[2023-02-08] VITALS (100 sets, daily range): BP systolic 80–184; BP diastolic 36–122; PULSE 47–104; RESP 13–60; O2SAT 95–100
[2023-02-08] MEDS: GUAIFENESIN-CODEINE 5 ML SYRUP PO SCH ×6 (01:29→21:40)
[2023-02-08] MEDS: MEROPENEM 1 GM in 0.9%NACL 100ML 100 ML IVPB SCH ×3 (01:29→17:09)
[2023-02-08] MEDS: IPRATROPIUM 0.5 MG/2.5 ML INH IH SCH ×6 (02:29→22:07)
[2023-02-08] MEDS: ACETYLCYSTEINE 10% 100MG/ML 4ML VIAL IH SCH ×3 (02:29→10:19)
[2023-02-08] MEDS ORDERED: DEXMEDETOMIDINE 400MCG/NS100ML IV ONE (02:37)
[2023-02-08] MEDS: SOLU-MEDROL 40MG VIAL IVP SCH ×3 (02:39→17:44)
[2023-02-08] MEDS: FUROSEMIDE 40MG VIAL IV SCH ×3 (03:35→20:30)
[2023-02-08] MEDS: HEPARIN 5,000 UNIT VIAL SQ SCH ×2 (04:10→17:12)
[2023-02-08 04:36] LABS: BASOPHILS % (AUTO) 0.1 % (0.0-5.0); HEMATOCRIT 31.7 % (36-48); LYMPHOCYTES % (AUTO) 0.9 % (21.0-51.0); MEAN CORPUSCULAR HEMOGLOBIN 21.2 pg (27.0-33.0); MEAN CORPUSCULAR HGB CONC 28.7 g/dL (32.0-36.0); MEAN CORPUSCULAR VOLUME 73.9 fL (79-99); MONOCYTES % (AUTO) 3.5 % (3.0-13.0); NEUTROPHILS % (AUTO) 94.5 % (40.0-77.0); PLATELET COUNT (AUTO) 53 K/uL (130-400); RED BLOOD CELL COUNT(AUTO) 4.29 MIL/uL (4.00-5.50); RED CELL DISTRIBUTION WIDTH 23.4 % (11.0-15.5)
[2023-02-08 04:46] LABS: CREATININE 1.3 mg/dL (0.5-1.5); POTASSIUM 4.5 mmol/L (3.5-5.1)
[2023-02-08] MEDS: METOCLOPRAMIDE 10 MG/2 ML VIAL IVP SCH ×2 (06:30→12:01)
[2023-02-08] MEDS: BUDESONIDE 0.5 MG/2 ML INH IH SCH ×2 (06:35→18:23)
[2023-02-08] MEDS: FAMOTIDINE 20MG VIAL IV SCH ×2 (08:27→21:39)
[2023-02-08] MEDS: LACTULOSE 20 GM/30 ML UDCUP PO PRN (08:27)
[2023-02-08] MEDS: LOSARTAN 50 MG TABLET PO SCH (08:28)
[2023-02-08] MEDS: TIZANIDINE HCL 2 MG TABLET PO SCH ×4 (08:28→21:39)
[2023-02-08] MEDS: METOPROLOL TARTRATE 25 MG TAB PO SCH ×2 (08:39→21:39)
[2023-02-08] MEDS: LEVOFLOXACIN 500 MG/D5W 100 ML 100 ML IV SCH (12:01)
[2023-02-08] MEDS: FUROSEMIDE 100MG VIAL 100 MG in 0.9%NACL 100ML 90 ML IV PRN ×2 (14:32→21:35)
[2023-02-08] MEDS ORDERED: DEXMEDETOMIDINE 400MCG/NS100ML IV SCH (15:00)
[2023-02-08] MEDS ORDERED: MORPHINE 2 MG SYG IVP SCH (16:00)
[2023-02-08] MEDS: ROPINIROLE HCL 1 MG TABLET PO SCH (21:40)
[2023-02-09] VITALS (97 sets, daily range): BP systolic 86–164; BP diastolic 40–83; PULSE 69–196; RESP 11–86; O2SAT 96–100
[2023-02-09] MEDS: GUAIFENESIN-CODEINE 5 ML SYRUP PO SCH ×6 (00:57→20:21)
[2023-02-09] MEDS: MEROPENEM 1 GM in 0.9%NACL 100ML 100 ML IVPB SCH ×3 (00:58→16:46)
[2023-02-09] MEDS: MORPHINE 2 MG SYG IVP PRN ×5 (01:22→18:18)
[2023-02-09] MEDS: ALPRAZOLAM 0.25 MG TABLET PO PRN ×2 (01:34→13:22)
[2023-02-09] MEDS: IPRATROPIUM 0.5 MG/2.5 ML INH IH SCH ×6 (02:11→22:15)
[2023-02-09] MEDS: SOLU-MEDROL 40MG VIAL IVP SCH ×3 (04:21→17:01)
[2023-02-09] MEDS: FUROSEMIDE 40MG VIAL IV SCH ×2 (04:30→11:45)
[2023-02-09] MEDS: HEPARIN 5,000 UNIT VIAL SQ SCH ×3 (05:00→16:44)
[2023-02-09 05:28] LABS: BASOPHILS % (AUTO) 0.2 % (0.0-5.0); HEMATOCRIT 37.9 % (36-48); LYMPHOCYTES % (AUTO) 0.8 % (21.0-51.0); MEAN CORPUSCULAR HEMOGLOBIN 21.8 pg (27.0-33.0); MEAN CORPUSCULAR HGB CONC 29.6 g/dL (32.0-36.0); MEAN CORPUSCULAR VOLUME 73.7 fL (79-99); MONOCYTES % (AUTO) 3.5 % (3.0-13.0); NEUTROPHILS % (AUTO) 94.7 % (40.0-77.0); PLATELET COUNT (AUTO) 78 K/uL (130-400); RED BLOOD CELL COUNT(AUTO) 5.14 MIL/uL (4.00-5.50); RED CELL DISTRIBUTION WIDTH 23.9 % (11.0-15.5); WHITE BLOOD COUNT (AUTO) 23.7 K/uL (4.8-10.8)
[2023-02-09 05:43] LABS: CREATININE 1.8 mg/dL (0.5-1.5); POTASSIUM 4.5 mmol/L (3.5-5.1); VANCOMYCIN LEVEL 26.2 mcg/mL (18.0-26.0)
[2023-02-09] MEDS: BUDESONIDE 0.5 MG/2 ML INH IH SCH ×2 (06:16→18:04)
[2023-02-09] MEDS: FAMOTIDINE 20MG VIAL IV SCH ×2 (08:08→20:20)
[2023-02-09] MEDS: LACTULOSE 20 GM/30 ML UDCUP PO PRN (08:08)
[2023-02-09] MEDS: LOSARTAN 50 MG TABLET PO SCH (08:08)
[2023-02-09] MEDS: TIZANIDINE HCL 2 MG TABLET PO SCH ×4 (08:08→20:20)
[2023-02-09] MEDS: METOPROLOL TARTRATE 25 MG TAB PO SCH ×2 (08:09→20:21)
[2023-02-09] MEDS: LEVOFLOXACIN 500 MG/D5W 100 ML 100 ML IV SCH (11:02)
[2023-02-09] MEDS: BUMETANIDE 1MG/4ML VIAL IVP SCH ×2 (13:22→20:20)
[2023-02-09] MEDS ORDERED: PHARMACY COMMUNICATION MISC SCH (16:00)
[2023-02-09] MEDS: ROPINIROLE HCL 1 MG TABLET PO SCH (20:21)
[2023-02-10] VITALS (92 sets, daily range): BP systolic 81–176; BP diastolic 37–111; PULSE 53–136; RESP 11–182; O2SAT 79–99
[2023-02-10 00:58] LABS: ABG BASE EXCESS -14.4 mmol/L (-2.0-3.0); ABG HCO3 16.9 mmol/L (21.0-28.0); ABG OXYGEN SATURATION 96.4 % (95.0-99.0); ABG PCO2 67 mmHg (32-45)
[2023-02-10] MEDS: GUAIFENESIN-CODEINE 5 ML SYRUP PO SCH ×5 (01:00→09:14)
[2023-02-10] MEDS ORDERED: SODIUM BICARB 50MEQ 50ML VIAL IV STA (01:01)
[2023-02-10] MEDS ORDERED: SODIUM BICARB 50MEQ 50ML VIAL 100 ML ONE ×2 (01:02→08:29)
[2023-02-10] MEDS ORDERED: FENTANYL CITRATE PF 50 MCG/1 ML 2ML VIAL ONE (01:03)
[2023-02-10] MEDS: MIDAZOLAM HCL 50 MG in 0.9%NACL 50ML 50 ML IV SCH ×2 (01:07→05:34)
[2023-02-10] MEDS ORDERED: PROPOFOL 1000 MG/100 ML 100 ML IV ONE (01:11)
[2023-02-10] MEDS ORDERED: FENTANYL 1000MCG+NS 100ML 100 ML IV ONE ×2 (01:16→06:12)
[2023-02-10] MEDS: PROPOFOL 1000 MG/100 ML IV PRN ×2 (01:18→04:55)
[2023-02-10] MEDS ORDERED: FENTANYL CITRATE PF 50 MCG/1 ML 2ML VIAL IVP PRN (01:30)
[2023-02-10] MEDS ORDERED: ATROPINE 1MG SYG IVP SCH (01:30)
[2023-02-10] MEDS: SODIUM BICARB 8.4% 50ML SYRING 150 MEQ in DEXTROSE 5%-WATER 1,000 ML IV SCH ×3 (01:30→13:30)
[2023-02-10] MEDS ORDERED: DOPAMINE HCL 400 MG/D5%-WATER 250 ML IV PRN (01:30)
[2023-02-10] MEDS ORDERED: FENTANYL 2500MCG+NS 250ML IV.SOLN IV SCH (01:30)
[2023-02-10] MEDS ORDERED: FENTANYL CITRATE PF 50 MCG/1 ML 2ML VIAL IVP ONE (01:30)
[2023-02-10 01:35] LABS: ALBUMIN 1.7 g/dL (3.5-5.0); CREATININE 2.8 mg/dL (0.5-1.5); TOTAL PROTEIN, SERUM 4.4 g/dL (6.0-8.3)
[2023-02-10 01:36] LABS: HEMATOCRIT 31.7 % (36-48); RED BLOOD CELL COUNT(AUTO) 4.14 MIL/uL (4.00-5.50); WHITE BLOOD COUNT (AUTO) 5.8 K/uL (4.8-10.8)
[2023-02-10 01:37] LABS: BASOPHILS % (AUTO) 0.2 % (0.0-5.0); LYMPHOCYTES % (AUTO) 38.7 % (21.0-51.0); MEAN CORPUSCULAR HEMOGLOBIN 21.7 pg (27.0-33.0); MEAN CORPUSCULAR HGB CONC 28.4 g/dL (32.0-36.0); MEAN CORPUSCULAR VOLUME 76.6 fL (79-99); MONOCYTES % (AUTO) 2.8 % (3.0-13.0); NEUTROPHILS % (AUTO) 55.5 % (40.0-77.0); NUCLEATED RED BLOOD CELLS 0.9 % (0.0-0.19); PLATELET COUNT (AUTO) 43 K/uL (130-400); RED CELL DISTRIBUTION WIDTH 23.9 % (11.0-15.5)
[2023-02-10 01:38] LABS: POTASSIUM 6.5 mmol/L (3.5-5.1)
[2023-02-10 01:44] LABS: MAGNESIUM 3.7 mg/dL (1.80-2.40)
[2023-02-10] MEDS ORDERED: NA ZIRCON CYCLOSIL(LOKELMA 10GM) PO ONE (02:00)
[2023-02-10] MEDS ORDERED: INSULIN HUMULIN R 100 UNIT/ML 3ML IV ONE ×2 (02:00→15:00)
[2023-02-10] MEDS ORDERED: PHARMACY COMMUNICATION MISC SCH (02:00)
[2023-02-10] MEDS ORDERED: 0.9%NACL 50ML IV SCH (02:00)
[2023-02-10] MEDS ORDERED: LACTATED RINGERS 1000ML IV ONE (02:00)
[2023-02-10] MEDS ORDERED: CALCIUM GLUC 1GM/10ML VIAL IVPB SCH (02:00)
[2023-02-10] MEDS ORDERED: DEXTROSE 50%-WATER 50 ML DISP.SYRIN IV ONE ×2 (02:00→15:00)
[2023-02-10] MEDS ORDERED: NOREPINEPHRINE 16MG/NS 250ML 250 ML IV ONE (02:16)
[2023-02-10] MEDS: IPRATROPIUM 0.5 MG/2.5 ML INH IH SCH ×5 (02:21→19:03)
[2023-02-10 02:42] LABS: ABG BASE EXCESS -12.6 mmol/L (-2.0-3.0); ABG HCO3 16.3 mmol/L (21.0-28.0); ABG OXYGEN SATURATION 93.9 % (95.0-99.0); ABG PCO2 50 mmHg (32-45)
[2023-02-10] MEDS ORDERED: VECURONIUM 10MG/10ML IV ONE ×2 (02:57→03:01)
[2023-02-10] MEDS ORDERED: VASOPRESSIN 20 UNITS in 0.9%NACL 100ML 100 ML IV SCH ×2 (03:00→08:30)
[2023-02-10] MEDS ORDERED: MIDAZOLAM HCL 1 MG/ML 2ML VIAL IVP PRN (03:00)
[2023-02-10] MEDS ORDERED: VECURONIUM 10MG/10ML IV PRN (03:30)
[2023-02-10] MEDS: MEROPENEM 1 GM in 0.9%NACL 100ML 100 ML IVPB SCH ×3 (03:37→17:38)
[2023-02-10] MEDS: SOLU-MEDROL 40MG VIAL IVP SCH (03:37)
[2023-02-10] MEDS: HEPARIN 5,000 UNIT VIAL SQ SCH (04:52)
[2023-02-10] MEDS: BUMETANIDE 1MG/4ML VIAL IVP SCH (04:56)
[2023-02-10] MEDS ORDERED: MIDAZOLAM HCL 50 MG in 0.9%NACL 50ML 50 ML IV SCH (05:00)
[2023-02-10] MEDS: NOREPINEPHRINE 16MG/NS 250ML PREMIX IV SCH ×5 (05:52→18:47)
[2023-02-10] MEDS: BUDESONIDE 0.5 MG/2 ML INH IH SCH ×2 (06:20→19:03)
[2023-02-10] MEDS ORDERED: FENTANYL 1000MCG+NS 100ML IV.SOLN IV SCH (07:00)
[2023-02-10] MEDS: METOPROLOL TARTRATE 25 MG TAB PO SCH (07:41)
[2023-02-10] MEDS: LOSARTAN 50 MG TABLET PO SCH (07:41)
[2023-02-10 08:02] LABS: ABG BASE EXCESS -9.3 mmol/L (-2.0-3.0); ABG HCO3 19.4 mmol/L (21.0-28.0); ABG OXYGEN SATURATION 89.6 % (95.0-99.0); ABG PCO2 53 mmHg (32-45)
[2023-02-10 08:13] LABS: ALBUMIN 2.1 g/dL (3.5-5.0); CREATININE 2.9 mg/dL (0.5-1.5); MAGNESIUM 2.8 mg/dL (1.80-2.40); POTASSIUM 5.7 mmol/L (3.5-5.1); TOTAL PROTEIN, SERUM 5.4 g/dL (6.0-8.3)
[2023-02-10] MEDS: TIZANIDINE HCL 2 MG TABLET PO SCH ×3 (08:29→16:17)
[2023-02-10] MEDS ORDERED: SODIUM BICARB 50MEQ 50ML VIAL IV SCH (08:30)
[2023-02-10] MEDS: FAMOTIDINE 20MG VIAL IV SCH (08:30)
[2023-02-10] MEDS ORDERED: FLUCONAZOLE 400 MG/NS 200 ML 200 ML IV SCH (09:00)
[2023-02-10 11:58] LABS: ABG BASE EXCESS -5.7 mmol/L (-2.0-3.0); ABG HCO3 21.8 mmol/L (21.0-28.0); ABG OXYGEN SATURATION 94.3 % (95.0-99.0); ABG PCO2 50 mmHg (32-45)
[2023-02-10] MEDS: INSULIN HUMULIN R 100 UNIT/ML 3ML SQ SCH ×2 (12:22→17:38)
[2023-02-10] MEDS ORDERED: KAYEXALATE 15GM/60ML PO ONE (15:00)
[2023-02-10] MEDS ORDERED: PHENYLEPHRINE HCL 100 MG in 0.9% NACL 250ML 250 ML IV SCH (15:00)
[2023-02-10] MEDS ORDERED: LACTATED RINGERS 1000ML IV SCH (15:00)
[2023-02-10] MEDS ORDERED: CACL 1GM SYG IVP SCH (15:00)
[2023-02-10] MEDS ORDERED: HYDROCORTISONE SOD SUCCINATE 100 MG/2 ML VIAL IV SCH (15:00)
[2023-02-10 15:45] LABS: ALBUMIN 2.1 g/dL (3.5-5.0); TOTAL PROTEIN, SERUM 5.1 g/dL (6.0-8.3)
[2023-02-10 15:48] LABS: POTASSIUM 6.1 mmol/L (3.5-5.1)
[2023-02-10 16:04] LABS: ABG HCO3 19.2 mmol/L (21.0-28.0); ABG OXYGEN SATURATION 94.5 % (95.0-99.0); ABG PCO2 52 mmHg (32-45)
== END 2023-02-10 20:10 | DRG 208 ==
LOC: EDH 15:06 → OBSVTOIN 18:03 → EDHIP 18:03 → 3AH 20:40 → 3BH 01-30 04:20 → 2AH 02-04 18:37 → 2CH 02-07 19:02
PROVIDERS: ADMIT Internal Medicine Critical Care Medicine; ATTEND Internal Medicine Critical Care Medicine
PROC: 02HV33Z Insertion of Infusion Device into Superior Vena Cava, Percutaneous Approach (ICD-10-PCS; 2023-01-24)
PROC: 0W993ZZ Drainage of Right Pleural Cavity, Percutaneous Approach (ICD-10-PCS; principal; 2023-01-28)
PROC: 5A09357 Assistance with Respiratory Ventilation, Less than 24 Consecutive Hours, Continuous Positive Airway Pressure (ICD-10-PCS; 2023-02-06)
PROC: 5A09357 Assistance with Respiratory Ventilation, Less than 24 Consecutive Hours, Continuous Positive Airway Pressure (ICD-10-PCS; 2023-02-07)
PROC: 5A09357 Assistance with Respiratory Ventilation, Less than 24 Consecutive Hours, Continuous Positive Airway Pressure (ICD-10-PCS; 2023-02-08)
PROC: 5A09357 Assistance with Respiratory Ventilation, Less than 24 Consecutive Hours, Continuous Positive Airway Pressure (ICD-10-PCS; 2023-02-09)
PROC: 5A09357 Assistance with Respiratory Ventilation, Less than 24 Consecutive Hours, Continuous Positive Airway Pressure (ICD-10-PCS; 2023-02-09)
PROC: 5A1935Z Respiratory Ventilation, Less than 24 Consecutive Hours (ICD-10-PCS; 2023-02-10)
PROC: 0BH17EZ Insertion of Endotracheal Airway into Trachea, Via Natural or Artificial Opening (ICD-10-PCS; 2023-02-10)
DX: J18.9 Pneumonia, unspecified organism (principal); A41.9 Sepsis, unspecified organism; J96.21 Acute and chronic respiratory failure with hypoxia; J96.22 Acute and chronic respiratory failure with hypercapnia; K72.00 Acute and subacute hepatic failure without coma; R65.21 Severe sepsis with septic shock; C78.00 Secondary malignant neoplasm of unspecified lung; C78.7 Secondary malignant neoplasm of liver and intrahepatic bile duct; G72.81 Critical illness myopathy; N17.9 Acute kidney failure, unspecified; J91.8 Pleural effusion in other conditions classified elsewhere; Z20.822 Contact with and (suspected) exposure to COVID-19; R57.0 Cardiogenic shock; M25.78 Osteophyte, vertebrae; E11.65 Type 2 diabetes mellitus with hyperglycemia; E66.01 Morbid (severe) obesity due to excess calories; G89.29 Other chronic pain; D69.6 Thrombocytopenia, unspecified; Y95 Nosocomial condition; E11.22 Type 2 diabetes mellitus with diabetic chronic kidney disease; I46.9 Cardiac arrest, cause unspecified; I48.91 Unspecified atrial fibrillation; N18.9 Chronic kidney disease, unspecified; T38.0X5A Adverse effect of glucocorticoids and synthetic analogues, initial encounter; Z66 Do not resuscitate; Z68.35 Body mass index [BMI] 35.0-35.9, adult; Z85.07 Personal history of malignant neoplasm of pancreas
CPT/HCPCS: 31500; 32555; 36415; 36569; 36600; 71045; 71250; 71270; 80048; 80053; 80202; 81001; 82140; 82435; 82550; 82803; 82945; 82947; 82948; 83036; 83605; 83615; 83690; 83735; 83880; 83986; 84100; 84132; 84145; 84157; 84295; 84443; 84484; 85018; 85025; 85027; 85378; 85610; 87071; 87088; 87116; 87205; 87206; 87426; 87804; 89051; 92950; 93005; 93970; 94002; 94640; 94660; 94664; C1729; C1894; G0378; J0171; J0360; J0610; J0692; J0696; J1450; J1644; J1720; J1815; J1885; J1940; J1956; J2185; J2250; J2270; J2371; J2704; J2765; J2920; J2930; J3010; J3490; J7050; J7070; J7608; Q9967; A9900; J3370